=== PATIENT | female | born 1990 | race Two or more races ===

== ENCOUNTER 2020-08-26 14:02 | Outpatient (CLI) | payer OTHER | END 2020-08-26 15:07 | disposition home or self-care (01) | LOC: OFIC 805 14:02 | PROVIDERS: ATTEND Otolaryngology | DX: H60.91 Unspecified otitis externa, right ear (principal) ==

== ENCOUNTER 2020-08-30 10:59 | Outpatient (CLI) | payer OTHER | END 2020-08-30 11:45 | disposition home or self-care (01) | LOC: OFIC 805 10:59 | PROVIDERS: ATTEND Otolaryngology | DX: H60.8X1 Other otitis externa, right ear (principal) ==

== ENCOUNTER 2021-10-24 09:46 | Outpatient (CLI) | payer OTHER | END 2021-10-24 09:47 | disposition home or self-care (01) | LOC: RX STUDY 09:46 | PROVIDERS: ATTEND Obstetrics & Gynecology Maternal & Fetal Medicine | DX: N80.9 Endometriosis, unspecified (principal) ==

== ENCOUNTER 2023-02-02 10:42 | Inpatient (IN) | payer OTHER ==
[~2023-02-02] VITALS: Ht 154.9 cm; Wt 68.5 kg
[2023-02-20] MEDS ORDERED: PRENATAL TABLE1 EAC1 PO (10:09)
== END 2023-02-22 13:14 | disposition home or self-care (01) | DRG 807 ==
LOC: LDR 02-20 09:32 → OB/GYN 02-20 17:18
PROVIDERS: Obstetrics & Gynecology Gynecology; ADMIT Obstetrics & Gynecology Maternal & Fetal Medicine; ATTEND Obstetrics & Gynecology Maternal & Fetal Medicine
PROC: 10E0XZZ Delivery of Products of Conception, External Approach (ICD-10-PCS; principal; 2023-02-20)
PROC: 0W8NXZZ Division of Female Perineum, External Approach (ICD-10-PCS; 2023-02-20)
PROC: 4A1HXCZ Monitoring of Products of Conception, Cardiac Rate, External Approach (ICD-10-PCS; 2023-02-20)
DX: O80 Encounter for full-term uncomplicated delivery (principal); Z37.0 Single live birth; Z3A.39 39 weeks gestation of pregnancy; Z20.822 Contact with and (suspected) exposure to COVID-19

== ENCOUNTER 2023-02-09 09:28 | Outpatient (CLI) | payer OTHER | END 2023-02-09 10:40 | disposition home or self-care (01) | LOC: NST 09:28 | PROVIDERS: ATTEND Obstetrics & Gynecology | DX: Z34.83 Encounter for supervision of other normal pregnancy, third trimester (principal) ==

== ENCOUNTER 2023-02-16 09:39 | Outpatient (CLI) | payer OTHER | END 2023-02-16 11:15 | disposition home or self-care (01) | LOC: NST 09:39 | PROVIDERS: ATTEND Obstetrics & Gynecology | DX: Z34.83 Encounter for supervision of other normal pregnancy, third trimester (principal) ==